=== PATIENT | male | born 1940 | race African-American/Black ===

== ENCOUNTER 2025-05-15 11:06 | Emergency (ER) | payer MEDICARE ==
[~2025-05-15] VITALS: Ht 165.1 cm; Wt 50.0 kg
[2025-05-15 11:08] VITALS: O2SAT 100
[2025-05-15] MEDS: SODIUM CHLORIDE 0.9% 1,000 ML IV ONE (11:46)
[2025-05-15 12:02] LABS: BASOPHILS % 1.0 % (0.0-2.0); EOSINOPHILS % 1.3 % (0.0-5.0); HEMATOCRIT. 38.0 % (42.0-52.0); HEMOGLOBIN. 12.7 g/dL (14.0-18.0); LYMPHOCYTES % 24.1 % (20.0-50.0); MEAN PLATELET VOLUME 10.3 fl (7.4-10.4); MONOCYTES % 8.2 % (2.0-8.0); NEUTROPHILS % 65.4 % (40.0-76.0); PLATELET 142 x1000/uL (130-400); RED BLOOD CELL COUNT 3.96 mill/uL (4.7-6.1); RED CELL DISTRIBUTION WIDTH 13.5 % (11.6-14.6)
[2025-05-15 12:18] LABS: CREATININE 1.0 mg/dL (0.6-1.3)
[2025-05-15 12:19] LABS: TROPONIN I HIGH SENSITIVITY 4 ng/L (3.0-53); UREA NITROGEN BLOOD 15 mg/dL (9-23)
[2025-05-15 12:20] LABS: ASPARTATE AMINOTRANSFERASE 16 IU/L (<34); BILIRUBIN DIRECT 0.2 mg/dL (<=3.0)
[2025-05-15 12:21] LABS: BILIRUBIN TOTAL 0.8 mg/dL (0.1-1.0); PROTEIN TOTAL 7.0 g/dL (6.0-8.3)
[2025-05-15 12:40] VITALS: BP 135/75; PULSE 60; RESP 16; TEMP 37.1; O2SAT 100
== END 2025-05-15 12:45 | disposition home or self-care (01) ==
LOC: ER 11:28 → CANBEDREQ 12:29 → ER 12:45
DX: R55 Syncope and collapse (principal); E11.9 Type 2 diabetes mellitus without complications; E78.5 Hyperlipidemia, unspecified; I10 Essential (primary) hypertension; I44.0 Atrioventricular block, first degree
CPT/HCPCS: 99285; 96360; 71045; 80076; 80048; 85025; 84484; 36415; 93005; J7030